=== PATIENT | male | born 1955 | race Two or more races ===

== ENCOUNTER 2022-07-22 09:04 | Day surgery (SDC) | payer MEDICARE, BC ==
[~2022-07-22] VITALS: Ht 177.8 cm; Wt 95.5 kg
[2022-07-22] MEDS ORDERED: MIDAZolam 1 MG/ML 5ML VIAL ONE (09:17)
[2022-07-22] MEDS ORDERED: fentaNYL/PF 50MCG/1 ML 2ML syringe ONE (09:17)
[2022-07-22] MEDS ORDERED: FINA5TAB11 PO (09:38)
[2022-07-22] MEDS ORDERED: FLO0.4C (09:38)
[2022-07-22] MEDS ORDERED: LIFI1DRO EACHEYE (09:39)
[2022-07-22] MEDS ORDERED: OFLOXACIN (09:39)
[2022-07-22 11:38] VITALS: BP 128/71
[2022-07-22 11:48] VITALS: BP 121/68
[2022-07-22 11:58] VITALS: BP 126/69
[2022-07-22 12:02] VITALS: BP 147/71
== END 2022-07-22 12:10 | disposition home or self-care (01) ==
LOC: GI LAB 09:04
PROVIDERS: ATTEND Internal Medicine Gastroenterology
DX: K59.00 Constipation, unspecified (principal); K63.5 Polyp of colon; K57.30 Diverticulosis of large intestine without perforation or abscess without bleeding; K64.1 Second degree hemorrhoids; Z87.891 Personal history of nicotine dependence; Z72.89 Other problems related to lifestyle
CPT/HCPCS: 45380; 88305; 99153; G0500; J2250; J3010; J7030; Z7512; 99152; A4620